=== PATIENT | male | born 2000 | race Caucasian/White ===

== ENCOUNTER 2021-10-11 06:34 | Emergency (ER) | payer SELFPAY ==
[2021-10-11 06:58] VITALS: BP 153/111; PULSE 86; RESP 20; TEMP 36.9; O2SAT 97; BMI 33.5
--- NOTE | 2021-10-11 07:26 | ED.GENADULT ---
HPI - General Adult General Time Seen by Provider: 07:25 Date Seen: 10/11/21 Chief complaint: Ear/Nose/Throat Problem Stated complaint: EAR PAIN,LOSS OF HEARING Time Seen by Provider: 10/11/21 07:19 Source: patient Mode of arrival: ambulatory Limitations: no limitations History of Present Illness HPI narrative: Patient is a 21-year-old male who presents bilateral ear pain, drainage, pain discomfort over the last couple of days. He has a slight postnasal drainage as well. No COVID exposure, no COVID type illness, no loss of taste or smell. Patient denies cough denies shortness of breath denies chest pain. Noted is his blood pressure is elevated. He agrees to follow up with the pharmacy to get a couple of readings and then follow up with his regular doctor in [place] within the next couple of days. He denies allergies to medication. He has had no fever Onset (ago): day(s) Quality: stabbing and aching Pain Consistency: constant Relieving factors: none Exacerbating factors: none Associated symptoms: denies other symptoms Treatments prior to arrival: aspirin Related Data Home Medications Medication Instructions Recorded Confirmed aspirin 50 mg PO PRN 10/11/21 10/11/21 lorazepam 1 mg tablet 0.5 mg PO PRN PRN 10/11/21 10/11/21 sertraline 25 mg tablet 25 mg PO QAM 10/11/21 10/11/21 Allergies Allergy/AdvReac Type Severity Reaction Status Date / Time No Known Drug Allergies Allergy Verified 10/11/21 07:05 Review of Systems Narrative: Review of systems is negative for cardiopulmonary GI neurologic skin other mentioned above. [facility] Medical History Anterior dislocation of right shoulder Anxiety Cellulitis Closed head injury Concussion Head trauma Influenza A Otitis media Overdose Palpitations PCP abuse Polysubstance abuse Rib injury Exam Narrative: Exam Narrative: Objective vital signs show the patient be afebrile HEENT shows bilateral otitis externa otitis media HEENT is otherwise unremarkable, throat is clear, pupils aggression light negative icterus Neck is supple Radial pulses regular Blood pressure noted to be elevated [id number] Const: Vital Signs, click to edit/add: Vital Signs - 24 hr 10/11/21 06:58 Temperature 98.4 F Pulse Rate [Right Pulse Oximeter] 86 Respiratory Rate 20 Blood Pressure [Le ft Upper Arm] 153/111 H Pulse Oximetry 97 Course Vital Signs Vital signs: Initial Vital Signs Temperature 98.4 F 10/11/21 06:58 Temperature Source Temporal Artery Scan 10/11/21 06:58 Pulse Rate 86 10/11/21 06:58 Pulse Rhythm 10/11/21 06:58 Pulse Strength 3+ Normal 10/11/21 06:58 Respiratory Rate 20 10/11/21 06:58 Blood Pressure 153/111 H 10/11/21 06:58 Blood Pressure Mean 125 10/11/21 06:58 Blood Pressure Position Sitting 10/11/21 06:58 Pulse Oximetry 97 10/11/21 06:58 Oxygen Delivery Method 10/11/21 06:58 Vital Signs Temperature 98.4 F 10/11/21 06:58 Pulse Rate 86 10/11/21 06:58 Respiratory Rate 20 10/11/21 06:58 Blood Pressure 153/111 H 10/11/21 06:58 Pulse Oximetry 97 10/11/21 06:58 Temperature 98.4 F 10/11/21 06:58 Pulse Rate 86 10/11/21 06:58 Respiratory Rate 20 10/11/21 06:58 Blood Pressure 153/111 H 10/11/21 06:58 Pulse Oximetry 97 10/11/21 06:58 Discharge Plan Discharge Clinical Impression: Otitis externa Qualifiers: Otitis externa type: other infective Chronicity: acute Laterality: bilateral Qualified Code(s): H60.393 - Other infective otitis externa, bilateral Otitis media Qualifiers: Chronicity: acute Patient Disposition: Home, Self-Care Condition: Stable Instructions: How to Use Ear Drops (ED), Ear Infection (ED) Additional Instructions: Will give oral antibiotics as well as antibiotic drops to use. Tylenol Advil to use as well, recheck blood pressure with pharmacy 2-3 times over the next week and then recheck with primary care with blood pressure readings Activity Level: No Restrictions Activity Detail: as tolerated Discharge Diet: Regular Prescriptions: No Action sertraline 25 mg tablet 25 mg PO QAM 0RF Label Comments: TAKE 1 TABLET BY MOUTH EVERY MORNING lorazepam 1 mg tablet 0.5 mg PO PRN PRN (Reason: anxiety) 0RF Label Comments: TAKE 1/2 TO 1 TABLET BY MOUTH TWICE DAILY NEEDED FOR ANXIETY OR SLEEP. MUST LAST 30 DAYS aspirin [Adult Low Dose Aspirin] 50 mg PO PRN 0RF Stand Alone Forms: [employer] Info Instructions
== END 2021-10-11 08:42 | disposition home or self-care (01) ==
LOC: ED 08:05
PROVIDERS: Emergency Provider Family Medicine; PCP Family Medicine
DX: H60.393 Other infective otitis externa, bilateral (principal)
CPT/HCPCS: 99283; 99284; A9270

== ENCOUNTER 2024-02-06 22:19 | Inpatient (IN) | payer MEDICAID, SELFPAY ==
[2024-02-06 23:07] VITALS: BP 162/104; PULSE 117; RESP 24; TEMP 36.6; O2SAT 98; BMI 30.7
[2024-02-07] VITALS (17 sets, daily range): BP systolic 138–181; BP diastolic 82–103; PULSE 87–126; RESP 18–32; TEMP 36.1–37.5; O2SAT 98–100; BMI 34.0
--- NOTE | 2024-02-07 00:01 | ED_ITS ---
HPI - Nausea/Vomiting/Diarrhea General Chief complaint: Nausea/Vomiting Stated complaint: vomiting, stomach pain Time Seen by Provider: 02/06/24 22:31 History of Present Illness HPI Narrative: Patient is a 23-year-old daily marijuana user comes in tonight with refractory vomiting. He has not had any marijuana for last 2 days as he has had significant nausea and vomiting. He has no abdominal pain. No changes bowel or bladder. No fevers no chills no neurologic symptoms. No chest pain no shortness of breath. He has had no blood in his vomitus. He has had no similar symptoms previously. Related Data Home Medications ?Medication ?Instructions ?Recorded ?Confirmed aspirin 50 mg PO PRN 10/11/21 10/11/21 lorazepam 1 mg tablet 0.5 mg PO PRN PRN anxiety 10/11/21 10/11/21 sertraline 25 mg tablet 25 mg PO QAM 10/11/21 10/11/21 Allergies Allergy/AdvReac Type Severity Reaction Status Date / Time No Known Drug Allergies Allergy Verified 02/06/24 23:07 Review of Systems Status of ROS: Reports: 10 or more systems reviewed and unremarkable except as noted in History and below [facility] Medical History Rib injury ?S29.9XXA - Unspecified injury of thorax, initial encounter (ICD-10) Polysubstance abuse ?F19.10 - Other psychoactive substance abuse, uncomplicated (ICD-10) PCP abuse ?F16.10 - Hallucinogen abuse, uncomplicated (ICD-10) Palpitations ?R00.2 - Palpitations (ICD-10) Overdose ?T50.901A - Poisoning by unspecified drugs, medicaments and biological substances, accidental (unintentional), initial encounter (ICD-10) Otitis media ?H66.90 - Otitis media, unspecified, unspecified ear (ICD-10) Influenza A ?J10.1 - Influenza due to other identified influenza virus with other respiratory manifestations (ICD-10) Head trauma ?S09.90XA - Unspecified injury of head, initial encounter (ICD-10) Concussion ?S06.0X9A - Concussion with loss of consciousness of unspecified duration, initial encounter (ICD-10) Closed head injury ?S09.90XA - Unspecified injury of head, initial encounter (ICD-10) Cellulitis ?L03.90 - Cellulitis, unspecified (ICD-10) Anxiety ?F41.9 - Anxiety disorder, unspecified (ICD-10) Anterior dislocation of right shoulder ?S43.014A - Anterior dislocation of right humerus, initial encounter (ICD-10) Social History Smoking Status: Never smoker Do you use any of these nicotine containing products: None Second hand tobacco smoke exposure: No How often do you have a drink containing alcohol: monthly or less How many standard drinks containing alcohol do you have on a typical day: 3 or 4 How often do you have six or more drinks on one occasion: Never AUDIT-C Alcohol total score: 2 Non-prescribed substance use: denies use service: No Exam Narrative: Exam Narrative: EXAM GENERAL: Patient appears Acutely uncomfortable and vomiting. EYES: No scleral icterus. LYMPH: No supraclavicular or cervical lymphadenopathy. SKIN: Visible skin seen during exam normal or with benign process only. EXT: No dependent lower extremity pedal edema. HEART: Regular rate and rhythm with no murmurs, rubs, or gallops. LUNGS: Clear to auscultation bilaterally with no crackles or wheezes. ABD: Soft, non tender, non distended. PSYCH: Good eye contact, speech is not pressured. Const: Vital Signs, click to edit/add: Vital Signs - 24 hr 02/06/24 23:07 Temperature 97.9 F Pulse Rate [Pulse Oximeter] 117 H Respiratory Rate 24 Blood Pressure [Ri ght Upper Arm] 162/104 H Pulse Oximetry 98 Oxygen Delivery Me thod Room Air Course Course ED Course: Patient seen examined. Comprehensive metabolic panel CBC lactate ordered. Normal saline bolus and IV Zofran given. Reevaluation(s) Time of Reevaluation #1: 01:14 Reevaluation #1: Patient has evidence of metabolic acidosis and hyperglycemia consistent with diabetic ketoacidosis. Patient's IV hydration will be continued intravenous insulin given and patient started on insulin drip. Patient will be admitted to hospitalist service. Vital Signs Vital signs: Initial Vital Signs Temperature 97.9 F 02/06/24 23:07 Temperature Source Temporal Artery Scan 02/06/24 23:07 Pulse Rate 117 H 02/06/24 23:07 Respiratory Rate 24 10/24/24 23:07 Blood Pressure 162/104 H 02/06/24 23:07 Blood Pressure Mean 123 H 02/06/24 23:07 Blood Pressure Position Sitting 02/06/24 23:07 Pulse Oximetry 98 02/06/24 23:07 Oxygen Delivery Method Room Air 02/06/24 23:07 Vital Signs Temperature 97.9 F 02/06/24 23:07 Pulse Rate 117 H 02/06/24 23:07 Respiratory Rate 24 02/06/24 23:07 Blood Pressure 162/104 H 02/06/24 23:07 Pulse Oximetry 98 02/06/24 23:07 Oxygen Delivery Method Room Air 02/06/24 23:07 Temperature 97.9 F 02/06/24 23:07 Pulse Rate 117 H 02/06/24 23:07 Respiratory Rate 24 02/06/24 23:07 Blood Pressure 162/104 H 02/06/24 23:07 Pulse Oximetry 98 02/06/24 23:07 Oxygen Delivery Method Room Air 02/06/24 23:07 Medications Administered Medications: Generic Name Dose Route Start Last Admin Trade Name Freq PRN Reason Stop Dose Admin Ondansetron HCl 4 mg 02/06/24 23:59 02/07/24 00:12 Ondansetron 2 Mg/Ml Inj IVP 4 mg ONCE PRN Administration Discontinued Medications Generic Name Dose Route Start Last Admin Trade Name Freq PRN Reason Stop Dose Admin Sodium Chloride 1,000 mls @ 1,000 mls/hr 02/07/24 00:00 02/07/24 01:05 0.9 % Sodium Chloride 1000 Ml IV 02/07/24 00:59 Infused .Q1H BARB Infusion MDM - Nausea/Vomiting/Diarrhea MDM Narrative Medical decision making narrative: patient is a 23-year-old gentleman who presents with nausea and vomiting not feeling well for 2 days. He has a strong family history of type 1 diabetes and has evidence of diabetic ketoacidoss tonight with a pH of 6.9 and an anion gap of 25 and a blood sugar greater than 350. This time we continue his hydration which we had started initially. He had given him IV Zofran as well I did note fairly stable electrolytes and did start him on an insulin drip and patient will be admitted to the hospitalist service. Lab Data Labs: Lab Results 10/25/24 Range/Units 00:30 WBC 13.41 H (4.50-11.00) K/uL RBC 6.19 H (4.30-5.90) m/uL Hgb 18.3 H (13.5-17.5) gm/dL Hct 54.0 H (37.0-53.0) % MCV 87 (80-100) fL MCH 30 (26-34) pg MCHC 34 (32-36) gm/dL RDW Coeff of Syd 14.5 (11.5-15.5) % Plt Count 237 (140-440) K/uL Neut % (Auto) 84.1 H (42.0-72.0) % Lymph % (Auto) 9.7 L (20-44) % Charlton % (Auto) 3.4 (0.0-11.0) % Eos % (Auto) 0.1 (0.0-7.0) % Baso % (Auto) 0.2 (0.0-3.0) % Neut # (Auto) 11.30 H (1.7-7.0) K/uL Lymph # (Auto) 1.30 (0.90-2.90) K/uL Charlton # (Auto) 0.50 (0.00-0.90) K/UL Eos # (Auto) 0.00 (0.00-0.50) K/uL Baso # (Auto) 0.00 (0.00-0.30) K/uL Abs Immat Gran (auto) 0.30 (0.00-0.30) K/uL Imm/Tot Granulo (auto) 2.5 % VBG pH 6.929 L* (7.32-7.43) VBG pCO2 33 L (40-50) mmHG VBG pO2 < 30.1 (25-47) mmHG VBG HCO3 7 L (21-28) mmol/L Sodium 137 (135-149) mmol/L Potassium 4.7 (3.6-5.1) mmol/L Chloride 106 (96-114) mmol/L Carbon Dioxide 6 L* (20-32) mmol/L Anion Gap 25 H (7-15) mEq/L BUN 6 (5-24) mg/dL Creatinine 0.6 (0.5-1.5) mg/dL Estimated Creat Clear 202.19 Estimated GFR 138 ml/min Glucose 361 H* (60-115) mg/dL Lactate 1.8 (0.5-1.9) mmol/L Calcium 8.9 (8.4-10.6) mg/dL Total Bilirubin 0.9 (0.1-1.5) mg/dL AST 18 (12-35) U/L ALT 29 (4-50) U/L Alkaline Phosphatase 171 H (40-150) U/L Total Protein 8.8 H (6.0-8.3) g/dL Albumin 5.5 H (3.3-5.0) g/dL Discharge Plan Discharge Clinical Impression: DKA, type 1 Patient Disposition: Admitted As Observation Condition: Stable Activity Level: Other Discharge Diet: Other Prescriptions: No Action sertraline 25 mg tablet 25 mg PO QAM Patient Comments: TAKE 1 TABLET BY MOUTH EVERY MORNING lorazepam 1 mg tablet 0.5 mg PO PRN PRN (Reason: anxiety) Patient Comments: TAKE 1/2 TO 1 TABLET BY MOUTH TWICE DAILY NEEDED FOR ANXIETY OR SLEEP. MUST LAST 30 DAYS aspirin [Adult Low Dose Aspirin] 50 mg PO PRN Follow Up/Referrals: Provider,Not a Local [Primary Care Provider] -
[2024-02-07] MEDS: 0.9 % SODIUM CHLORIDE 1000 ml 1,000 ML IV ×2 (00:12→01:22)
[2024-02-07] MEDS: ONDANSETRON 2 MG/ML inj 4 MG IVP ×2 (00:12→12:14)
[2024-02-07 00:45] LABS: Basophils Percent Auto 0.2 % (0.0-3.0); Eosinophils Percent Auto 0.1 % (0.0-7.0); Hemoglobin* 18.3 gm/dL (13.5-17.5); Immature Granulocytes Pct Auto 2.5 %; Lymphocytes Percent Auto 9.7 % (20-44); Mean Corpuscular HGB Conc 34 gm/dL (32-36); Mean Corpuscular Hemoglobin 30 pg (26-34); Mean Corpuscular Volume 87 fL (80-100); Monocytes Percent Auto 3.4 % (0.0-11.0); Neutrophils Percent Auto 84.1 % (42.0-72.0); Platelet Count* 237 K/uL (140-440); RDW Coefficient of Variation % 14.5 % (11.5-15.5); Red Blood Count 6.19 m/uL (4.30-5.90); White Blood Count* 13.41 K/uL (4.50-11.00)
[2024-02-07 00:52] LABS: Albumin* 5.5 g/dL (3.3-5.0); Chloride* 106 mmol/L (96-114)
[2024-02-07 00:53] LABS: Potassium* 4.7 mmol/L (3.6-5.1); Sodium* 137 mmol/L (135-149)
[2024-02-07 00:54] LABS: Slide Review Reflex No
[2024-02-07 00:55] LABS: Anion Gap 25 mEq/L (7-15); Aspartate Amino Transferase* 18 U/L (12-35); Bilirubin Total* 0.9 mg/dL (0.1-1.5); Creatinine* 0.6 mg/dL (0.5-1.5); Est. Creatinine Clearance* 202.19; Estimated Glomerular Filt Rate 138 ml/min; Total Protein* 8.8 g/dL (6.0-8.3)
[2024-02-07 00:56] LABS: Alanine Aminotransferase* 29 U/L (4-50); Alkaline Phosphatase* 171 U/L (40-150); Blood Urea Nitrogen* 6 mg/dL (5-24); Calcium* 8.9 mg/dL (8.4-10.6)
[2024-02-07 00:58] LABS: Carbon Dioxide* 6 mmol/L (20-32); Glucose* 361 mg/dL (60-115)
[2024-02-07 01:11] LABS: Lactate* 1.8 mmol/L (0.5-1.9)
[2024-02-07 01:12] LABS: HCO3 VBG 7 mmol/L (21-28); PCO2 VBG 33 mmHG (40-50); PO2 VBG < 30.1 mmHG (25-47); pH VBG 6.929 (7.32-7.43)
[2024-02-07] MEDS: INSULIN REGULAR, HUMAN 100 UNIT/ML VIAL 8 UNIT IVP (01:17)
[2024-02-07] MEDS: INSULIN INF 100 UNIT/100 ML 100 UNIT/100 ML BAG IVPB ×3 (01:19→23:07)
--- NOTE | 2024-02-07 02:34 | W.PM.TELEH&P ---
Telehealth- H&P: HPI History of Present Illness Date Seen: 02/07/24 Chief complaint: vomiting, stomach pain Narrative: Vishnu Jesus is seen as an Interactive Telehealth visit. Vishnu Jesus is a 23-year-old male with a past medical history significant for obesity, anxiety depression who presented to hospital with complaints of weakness. Approximately 2 to 3 weeks ago he was noticing that he was having increasing thirst. He is getting up multiple times in the night to go to the bathroom. He was noticing that he was drinking excessive amounts of water. Over the past 2 to 3 days he has noted that his urination has decreased despite being thirsty. He has noted increasing weakness and fatigue. When he presented to the emergency room, he was noted to be severely tachypneic. His labs showed pH of 6.929, bicarb level of less than 5, and elevated glucose. Fortunately beta hydroxybutyrate lab values will not able to be obtained. He was diagnosed with diabetic ketoacidosis. And started her on an insulin infusion and bolused 2 L of fluid in the ER. His labs showed significant hemoconcentration with a hemoglobin of 18.3, hematocrit of 54. When I saw the patient on the floor, he was noted to be tachypneic and in discomfort. He did however state that he was feeling better after the fluid. He was started on an insulin infusion DKA protocol. Physical exam did not yield any gross abnormality Review of Systems Status of ROS: Reports: 10 or more systems reviewed and unremarkable except as noted in History and below Const: Reports: change in weight and fatigue; Denies: fever or night sweats Cardio: Reports: palpitations and shortness of breath with exertion; Denies: chest pain Resp: Reports: shortness of breath GI: Reports: nausea and vomiting; Denies: abdominal pain : Reports: urinary frequency Endo: Reports: excessive urination and fatigue [facility] Medical History Rib injury ?S29.9XXA - Unspecified injury of thorax, initial encounter (ICD-10) Polysubstance abuse ?F19.10 - Other psychoactive substance abuse, uncomplicated (ICD-10) PCP abuse ?F16.10 - Hallucinogen abuse, uncomplicated (ICD-10) Palpitations ?R00.2 - Palpitations (ICD-10) Overdose ?T50.901A - Poisoning by unspecified drugs, medicaments and biological substances, accidental (unintentional), initial encounter (ICD-10) Otitis media ?H66.90 - Otitis media, unspecified, unspecified ear (ICD-10) Influenza A ?J10.1 - Influenza due to other identified influenza virus with other respiratory manifestations (ICD-10) Head trauma ?S09.90XA - Unspecified injury of head, initial encounter (ICD-10) Concussion ?S06.0X9A - Concussion with loss of consciousness of unspecified duration, initial encounter (ICD-10) Closed head injury ?S09.90XA - Unspecified injury of head, initial encounter (ICD-10) Cellulitis ?L03.90 - Cellulitis, unspecified (ICD-10) Anxiety ?F41.9 - Anxiety disorder, unspecified (ICD-10) Anterior dislocation of right shoulder ?S43.014A - Anterior dislocation of right humerus, initial encounter (ICD-10) Social History What is your current living situation?: I presently have a place to live Problems where you live: no known problems Problems where you live details: NO KNOWN PROBLEMS In the past 12 months, utilities in danger of being shut off: no In past 12 months, lack of transportation kept you from medical appts, meetings, work, or getting things needed for daily living: no In the past 12 mos, have been you worried that your food would run out before you had money to buy more?: never true In the past 12 mos, the food you bought just didn't last and you didn't have money to buy more?: never true Highest level of school completed/degree received: high school graduate Smoking Status: Smoker, status unknown Do you use any of these nicotine containing products: None Second hand tobacco smoke exposure: No How often do you have a drink containing alcohol: monthly or less Alcohol type: beer How many standard drinks containing alcohol do you have on a typical day: 3 or 4 How often do you have six or more drinks on one occasion: Never AUDIT-C Alcohol total score: 2 Non-prescribed substance use: marijuana (any form) How often does anyone, including family, friends and others, physically hurt you: never How often does anyone, including family, friends and others, insult or talk down to you: never How often does anyone, including family, friends and others, threaten you with harm: never How often does anyone, including family, friends and others, scream or curse at you: never service: No Meds Home Medications and Allergies Home Medications ?Medication ?Instructions ?Recorded ?Confirmed ?Type aspirin 50 mg PO PRN 10/11/21 10/11/21 History lorazepam 1 mg tablet 0.5 mg PO PRN PRN anxiety 10/11/21 10/11/21 History sertraline 25 mg tablet 25 mg PO QAM 10/11/21 10/11/21 History Allergies Allergy/AdvReac Type Severity Reaction Status Date / Time No Known Drug Allergies Allergy Verified 02/06/24 23:07 Exam Narrative Exam Narrative: Physical Exam GENERAL: ?vital signs reviewed, well developed. Patient appeared to be in distress with deep, rapid breathing. But without evidence of hypoxia HEENT: pupils are equal round and reactive to light, extraocular movements are grossly within normal limits and oral mucosa is moist. NECK: Supple without lymphadenopathy or thyromegaly according to nursing staff examination observation HEART: tachycardia without any rubs, murmurs, or gallops. LUNGS: Clear to auscultation bilaterally with good air movement throughout ABDOMEN: Observation from nurse assisted exam, abdomen appears soft, nontender, and nondistended with Positive bowel sounds noted. EXTREMITIES: Strength and sensation is observed to be grossly within normal limits in the upper and lower extremities.? No focal strength deficit is observed. SKIN:? Observed warm and dry with color normal Const Vital Signs, click to edit/add: Vital Signs - 24 hr 02/06/24 23:07 Temperature 97.9 F Pulse Rate [Pulse Oximeter] 117 H Respiratory Rate 24 Blood Pressure [Right Upper Arm] 162/104 H Pulse Oximetry 98 Oxygen Delivery Method Room Air Hospitalist - H&P: Result Labs Labs: Short CBC 02/07/24 Range/Units 00:30 WBC 13.41 H (4.50-11.00) K/uL Hgb 18.3 H (13.5-17.5) gm/dL Hct 54.0 H (37.0-53.0) % Plt Count 237 (140-440) K/uL BMP 02/07/24 00:30 Sodium 137 Potassium 4.7 Chloride 106 Carbon Dioxide 6 L* BUN 6 Creatinine 0.6 Glucose 361 H* Calcium 8.9 Liver Function 02/07/24 Range/Units 00:30 Total Bilirubin 0.9 (0.1-1.5) mg/dL AST 18 (12-35) U/L ALT 29 (4-50) U/L Alkaline Phosphatase 171 H (40-150) U/L Albumin 5.5 H (3.3-5.0) g/dL Assessment and Plan Assessment and plan (1) DKA, type 1: Status: Acute Plan This is a 23-year-old male with a new diagnosis of diabetic ketoacidosis. This is based on a pH level less than 7, evidence of acidosis on renal exam with a bicarb level less than 5 anion gap acidosis and with hyperglycemia. His clinical exam also was consistent with polyuria polydipsia. We started the patient on DKA protocol which included starting the insulin infusion and normal saline at 200 mL/h. Once his blood sugars were less than 200, the protocol switched fluids to D5 normal saline at 150 mL/h. There after, the insulin infusion would continue until his anion gap closed. To assess his anion gap, we have renal panels every 4 hours. This diagnosis of diabetes appears to be a first-time diagnosis. I will request diabetic education to be involved. This patient has noted to have elevated blood pressure. It is possible that this is likely due to the distress he is in. However if he remains to have elevated blood pressure, I would consider starting an ZULMA inhibitor and checking his urine for microalbuminuria while in the hospital. The patient did experience intractable nausea vomiting. I will provide pantoprazole IV and as needed Zofran. Telehealth Visit Today's History and Physical is provided via interactive telehealth by Dr. Rob Molina MD. Patient is located at [facility]. Provider is located at [facility]. Nursing staff assisted with the patient's examination. The visit being done today meets criteria for a telehealth visit and the patient or patient's parent and/or gaurdian is aware the visit is a telehealth visit. Camera Start Time 2:30 AM Camera End Time 3 AM Telehealth: Statement Statement Telehealth Visit: Today's History and Physical is provided via interactive telehealth by Rob Molina MD.? Patient is located at [facility].? Provider is located at [facility].? Nursing staff assisted with the patient's exam. The visit being done today meets criteria for a telehealth visit and the patient or patient?s parent/guardian is aware the visit is a telehealth visit.
[2024-02-07 02:45] LABS: HCO3 VBG 5 mmol/L (21-28); Lactate* 1.5 mmol/L (0.5-1.9); PCO2 VBG 24 mmHG (40-50); PO2 VBG < 30.1 mmHG (25-47)
[2024-02-07 02:47] LABS: pH VBG 6.959 (7.32-7.43)
[2024-02-07 03:02] LABS: Chloride* 107 mmol/L (96-114); Sodium* 137 mmol/L (135-149)
[2024-02-07 03:03] LABS: Potassium* 4.3 mmol/L (3.6-5.1)
[2024-02-07 03:05] LABS: Creatinine* 0.5 mg/dL (0.5-1.5); Est. Creatinine Clearance* 242.63; Estimated Glomerular Filt Rate 146 ml/min; Phosphorus* 3.3 mg/dL (2.5-4.5)
[2024-02-07 03:06] LABS: Blood Urea Nitrogen* 6 mg/dL (5-24); Calcium* 8.7 mg/dL (8.4-10.6); Glucose* 283 mg/dL (60-115)
[2024-02-07 03:13] LABS: Anion Gap 25 mEq/L (7-15); Carbon Dioxide* < 5 mmol/L (20-32)
[2024-02-07] MEDS: PANTOPRAZOLE SODIUM 40 MG INJ IVP (03:21)
[2024-02-07 03:37] LABS: TSH With Reflex to FT4* 0.449 uIU/mL (0.270-4.200)
[2024-02-07 03:47] LABS: HIV 1/2/P24 Combo Screen* Negative (Negative)
[2024-02-07] MEDS: 5 % DEXTROSE/0.9% SOD CHLORIDE 1,000 ML 150 ML IV (04:29)
[2024-02-07 06:39] LABS: HCO3 VBG 4 mmol/L (21-28); Lactate* 0.9 mmol/L (0.5-1.9); PO2 VBG 47.6 mmHG (25-47)
[2024-02-07 07:12] LABS: Appearance Urine Clear (Clear); Bilirubin Urine 1+ (Negative); Blood Urine 2+ (Negative); Color Urine Yellow (Yellow); Glucose Urine Trace (Negative); Ketones Urine 4+ (Negative); Leukocyte Esterase Urine Negative (Negative); Nitrite Urine Negative (Negative); Protein Urine 2+ (Negative); Specific Gravity Urine >= 1.030 (1.000-1.030); Urobilinogen Urine 0.2 (0.2-1.0)
[2024-02-07 07:19] LABS: Basophils Percent Auto 0.1 % (0.0-3.0); Eosinophils Percent Auto 0.1 % (0.0-7.0); Hematocrit 48.2 % (37.0-53.0); Hemoglobin* 16.7 gm/dL (13.5-17.5); Lymphocytes Percent Auto 15.7 % (20-44); Mean Corpuscular HGB Conc 35 gm/dL (32-36); Mean Corpuscular Hemoglobin 30 pg (26-34); Mean Corpuscular Volume 86 fL (80-100); Neutrophils Percent Auto 74.1 % (42.0-72.0); Platelet Count* 216 K/uL (140-440); RDW Coefficient of Variation % 14.3 % (11.5-15.5); Red Blood Count 5.61 m/uL (4.30-5.90); White Blood Count* 13.78 K/uL (4.50-11.00)
[2024-02-07 07:20] LABS: Chloride* 108 mmol/L (96-114); PCO2 VBG 16 mmHG (40-50); Potassium* 3.7 mmol/L (3.6-5.1); Sodium* 135 mmol/L (135-149); pH VBG 7.024 (7.32-7.43)
[2024-02-07 07:21] LABS: Slide Review Reflex No
[2024-02-07 07:23] LABS: Amorphous Sediment Urine Moderate; Squamous Epithelial Cell Urine Many (None-Few); WBC Urine 0-2 (0-5)
[2024-02-07 07:23] LABS: Creatinine* 0.6 mg/dL (0.5-1.5); Est. Creatinine Clearance* 202.19; Estimated Glomerular Filt Rate 138 ml/min
[2024-02-07 07:24] LABS: Blood Urea Nitrogen* 5 mg/dL (5-24); Calcium* 8.8 mg/dL (8.4-10.6); Glucose* 227 mg/dL (60-115)
[2024-02-07 07:25] LABS: Anion Gap 22 mEq/L (7-15)
[2024-02-07 07:27] LABS: Carbon Dioxide* < 5 mmol/L (20-32)
--- NOTE | 2024-02-07 07:31 | PC.NURSE ---
END OF SHIFT NOTE: PT NEW DIAGNOSIS OF DM TYPE 1. A&O. TACHYPNEIC BREATHING. DENIES N/V/D. BP'S HTN 170/100. TELE READS SINUS TACH. PT BG 195, 232, 227 INSULIN DRIP ADJUSTED PER PROTOCOL. PT STATES INCREASED THIRST AND URINATION. IV TO RIGHT AC PATENT. LSCTA. CALL LIGHT WITHIN PT REACH.
--- NOTE | 2024-02-07 07:32 | P.IMPN_ITS ---
Progress Note: A&P Assessment and plan (1) DKA, type 1: Problem details: - new diagnosis on presentation 02/06/24 - acidotic with pH 6.92, bicarb <5, AG 25 - improving on insulin gtt, D5NS +KCl, bicarbonate - continue insulin gtt until able to tolerate po intake + closed AG Status: Acute Plan - continue CCU status for now - per above - father updated by phone, questions answered Subjective Date Seen: 02/07/24 Interval history: Vishnu was admitted to the CCU last night for a new diagnosis of DM, in DKA. Presenting blood sugar 361; pH 6.92 on VBG, bicarb of <5, AG of 25. Admitted on insulin gtt. Overnight, having improvement in pH, AG, bicarb. This morning, he is feeling tired and nauseated, no other concerns. + family history of DM2. Exam Narrative: Exam Narrative: GEN: Sleeping in bed, arouses to voice, appears ill but nontoxic CV: RRR (HR 80-90s during my exam) R: Intermittent tachypnea, LCTA bilaterally Ab: soft, nontender, no HSM Ext: wwp, no concerning edema Skin: No concerning skin lesions or rashes Neuro: Nonfocal Psych: Appropriate Const: Vital Signs, click to edit/add: Vital Signs - 24 hr 02/06/24 23:07 02/07/24 01:55 02/07/24 01:55 Temperature 97.9 F 97.0 F L Pulse Rate Pulse Rate [Pulse Oximeter] 117 H 126 H Respiratory Rate 24 32 H 32 H Blood Pressure [Le ft Arm] 181/97 H Blood Pressure [Ri ght Upper Arm] 162/104 H Pulse Oximetry 98 98 100 Oxygen Delivery Me thod Room Air Room Air Room Air 02/07/24 04:00 02/07/24 04:20 02/07/24 06:00 Temperature 98.3 F 98.3 F Pulse Rate 104 H Pulse Rate [Pulse Oximeter] 113 H 113 H Respiratory Rate 28 H 28 H Blood Pressure [Le ft Arm] 175/103 H 169/94 H Blood Pressure [Ri ght Upper Arm] Pulse Oximetry 100 100 Oxygen Delivery Me thod Room Air Room Air Labs Labs: Laboratory Results - last 24 hr 02/07/24 02/07/24 02/07/24 00:30 02:35 06:22 WBC 13.41 H 13.78 H RBC 6.19 H 5.61 Hgb 18.3 H 16.7 Hct 54.0 H 48.2 MCV 87 86 MCH 30 30 MCHC 34 35 RDW Coeff of Syd 14.5 14.3 Plt Count 237 216 Neut % (Auto) 84.1 H 74.1 H Lymph % (Auto) 9.7 L 15.7 L [place] % (Auto) 3.4 8.0 Eos % (Auto) 0.1 0.1 Baso % (Auto) 0.2 0.1 Neut # (Auto) 11.30 H 10.20 H Lymph # (Auto) 1.30 2.20 [place] # (Auto) 0.50 1.10 H Eos # (Auto) 0.00 0.00 Baso # (Auto) 0.00 0.00 Abs Immat Gran (auto) 0.30 0.30 Imm/Tot Granulo (auto) 2.5 2.0 VBG pH 6.929 L* 6.959 L* 7.024 L* VBG pCO2 33 L 24 L 16 L* VBG pO2 < 30.1 < 30.1 47.6 H VBG HCO3 7 L 5 L 4 L Sodium 137 137 135 Potassium 4.7 4.3 3.7 Chloride 106 107 108 Carbon Dioxide 6 L* < 5 L* < 5 L* Anion Gap 25 H 25 H 22 H BUN 6 6 5 Creatinine 0.6 0.5 0.6 Estimated Creat Clear 202.19 242.63 202.19 Estimated GFR 138 146 138 Glucose 361 H* 283 H 227 H Lactate 1.8 1.5 0.9 Calcium 8.9 8.7 8.8 Phosphorus 3.3 Magnesium 2.0 Total Bilirubin 0.9 AST 18 ALT 29 Alkaline Phosphatase 171 H Total Protein 8.8 H Albumin 5.5 H TSH 0.449 Urine Color Urine Appearance Urine pH Ur Specific [place] Urine Protein Urine Glucose (UA) Urine Ketones Urine Blood Urine Nitrite Urine Bilirubin Urine Urobilinogen Ur Leukocyte Esterase Urine RBC Urine WBC Ur Squamous Epith Cells Amorphous Sediment Urine Bacteria HIV 1&2 Ab/P24 Ag 4thGn Negative 02/07/24 06:30 WBC RBC Hgb Hct MCV MCH MCHC RDW Coeff of Syd Plt Count Neut % (Auto) Lymph % (Auto) [place] % (Auto) Eos % (Auto) Baso % (Auto) Neut # (Auto) Lymph # (Auto) [place] # (Auto) Eos # (Auto) Baso # (Auto) Abs Immat Gran (auto) Imm/Tot Granulo (auto) VBG pH VBG pCO2 VBG pO2 VBG HCO3 Sodium Potassium Chloride Carbon Dioxide Anion Gap BUN Creatinine Estimated Creat Clear Estimated GFR Glucose Lactate Calcium Phosphorus Magnesium Total Bilirubin AST ALT Alkaline Phosphatase Total Protein Albumin TSH Urine Color Yellow Urine Appearance Clear Urine pH 5.0 Ur Specific [place] >= 1.030 Urine Protein 2+ A Urine Glucose (UA) Trace A Urine Ketones 4+ A Urine Blood 2+ A Urine Nitrite Negative Urine Bilirubin 1+ A Urine Urobilinogen 0.2 Ur Leukocyte Esterase Negative Urine RBC 5-10 A Urine WBC 0-2 Ur Squamous Epith Cells Many A Amorphous Sediment Moderate A Urine Bacteria None HIV 1&2 Ab/P24 Ag 4thGn
[2024-02-07] MEDS: 5 % DEX/0.9 SOD CHL+KCL 20 mEq 1,000 ML 125 ML IV (08:12)
[2024-02-07] MEDS: SODIUM BICARBONATE 50 MEQ/50ML SYRINGE IVP ×2 (09:05→11:42)
[2024-02-07 10:25] LABS: HCO3 VBG 7 mmol/L (21-28); PO2 VBG 64.2 mmHG (25-47)
[2024-02-07 10:30] LABS: PCO2 VBG 17 mmHG (40-50); pH VBG 7.202 (7.32-7.43)
[2024-02-07] MEDS: INSULIN INF 100 UNIT/100 ML 100 UNIT/100 ML BAG 13.5 UNIT IVPB (10:36)
[2024-02-07 10:43] LABS: Chloride* 111 mmol/L (96-114); Potassium* 3.2 mmol/L (3.6-5.1); Sodium* 135 mmol/L (135-149)
[2024-02-07 10:46] LABS: Anion Gap 17 mEq/L (7-15); Creatinine* 0.5 mg/dL (0.5-1.5); Est. Creatinine Clearance* 242.63; Estimated Glomerular Filt Rate 146 ml/min
[2024-02-07 10:47] LABS: Blood Urea Nitrogen* 4 mg/dL (5-24); Glucose* 195 mg/dL (60-115)
[2024-02-07 10:51] LABS: Carbon Dioxide* 7 mmol/L (20-32)
[2024-02-07] MEDS: POTASSIUM CHLORIDE 10 MEQ/100 ML PIGGYBACK 100 MEQ IVPB ×3 (11:42→14:13)
[2024-02-07] MEDS: POTASSIUM BICARB 25 MEQ EFFERVESCENT TAB 50 MEQ PO (11:42)
[2024-02-07 14:07] LABS: HCO3 VBG 10 mmol/L (21-28); PCO2 VBG 21 mmHG (40-50); pH VBG 7.281 (7.32-7.43)
--- NOTE | 2024-02-07 14:23 | NUTR.NU ---
RDN with verbal MD consult for diet education related to new diagnosis of diabetes mellitus, type 1. Patient admitted in A, suspected to have new diagnosis of type 1 diabetes mellitus. Past medical history Polysubstance abuse, Cellulitis, and Anxiety. Current weight 243 lb 11.2 oz; height 5ft 11in; BMI 34.0 kg/m2. No weight history to assess. No oral intakes recorded since admit. RDN attempted to visit x2, however spoke to nursing whom reports patient is very sick and not feeling well today. Not an appropriate time to visit with patient. RDN informed nursing that diet educational materials were left by patient's physical chart in case he discharges home over the weekend. RDN will attempt to visit with patient if he is still admitted at next work day. RDN's contact information was provided as well.
[2024-02-07 14:47] LABS: Chloride* 112 mmol/L (96-114); Sodium* 135 mmol/L (135-149)
[2024-02-07 14:48] LABS: Potassium* 3.1 mmol/L (3.6-5.1)
[2024-02-07 14:50] LABS: Creatinine* 0.4 mg/dL (0.5-1.5); Est. Creatinine Clearance* 303.29; Estimated Glomerular Filt Rate 156 ml/min
[2024-02-07 14:51] LABS: Anion Gap 15 mEq/L (7-15); Blood Urea Nitrogen* 4 mg/dL (5-24); Calcium* 9.2 mg/dL (8.4-10.6); Glucose* 191 mg/dL (60-115)
[2024-02-07 15:01] LABS: Carbon Dioxide* 8 mmol/L (20-32)
[2024-02-07 15:13] LABS: Hemoglobin A1C* 12.5 % (0-5.6)
[2024-02-07] MEDS: POTASSIUM CHLORIDE 10 MEQ, LIDOCAINE 1 % 1 ML in 0.9 % SODIUM CHLORIDE 100 ml 100 ML 106 MEQ IVPB ×5 (15:31→20:07)
[2024-02-07] MEDS: 5 % DEX/0.9 SOD CHL+KCL 20 mEq 1,000 ML 200 ML IV (15:31)
[2024-02-07 15:33] LABS: Magnesium* 1.9 mg/dL (1.5-2.6)
[2024-02-07] MEDS: INSULIN INF 100 UNIT/100 ML 100 UNIT/100 ML BAG 15 UNIT IVPB (16:21)
[2024-02-07 18:13] LABS: HCO3 VBG 15 mmol/L (21-28); PCO2 VBG 34 mmHG (40-50); PO2 VBG < 30.1 mmHG (25-47); pH VBG 7.249 (7.32-7.43)
[2024-02-07 18:29] LABS: Chloride* 108 mmol/L (96-114); Potassium* 3.4 mmol/L (3.6-5.1); Sodium* 134 mmol/L (135-149)
[2024-02-07 18:32] LABS: Anion Gap 13 mEq/L (7-15); Blood Urea Nitrogen* 4 mg/dL (5-24); Carbon Dioxide* 13 mmol/L (20-32); Creatinine* 0.4 mg/dL (0.5-1.5); Est. Creatinine Clearance* 303.29; Estimated Glomerular Filt Rate 156 ml/min; Glucose* 224 mg/dL (60-115)
[2024-02-07 18:33] LABS: Calcium* 8.8 mg/dL (8.4-10.6); Magnesium* 1.8 mg/dL (1.5-2.6)
--- NOTE | 2024-02-07 19:29 | PC.NURSE ---
PATIENT LETHARGIC THIS MORNING AND AFTERNOON. ATTEMPTED TO DRINK ORAL POTASSIUM THIS AM AND HAD LARGE EMESIS. MD UPDATED AND ORDER CHANGED TO IV. PATIENT MORE ALERT THIS EVENING AND ABLE TO TOLERATE JELLO AND MASHED POTATOES WITH NO N/V. HOURLY BLOOD GLUCOSE LEVELS MONITORED.
[2024-02-07] MEDS: 5 % DEX/0.9 SOD CHL+KCL 20 mEq 1,000 ML 100 ML IV (20:11)
[2024-02-07] MEDS: INSULIN INF 100 UNIT/100 ML 100 UNIT/100 ML BAG 17 UNIT IVPB ×2 (20:52→21:07)
[2024-02-07] MEDS: ENOXAPARIN 40 MG/0.4 ML INJ SUBCUT (21:06)
[2024-02-07] MEDS: INSULIN INF 100 UNIT/100 ML 100 UNIT/100 ML BAG 10 UNIT IVPB (22:29)
[2024-02-07 23:14] LABS: HCO3 VBG 15 mmol/L (21-28); PCO2 VBG 30 mmHG (40-50); PO2 VBG 38.3 mmHG (25-47); pH VBG 7.302 (7.32-7.43)
[2024-02-07 23:36] LABS: Chloride* 112 mmol/L (96-114); Potassium* 3.2 mmol/L (3.6-5.1); Sodium* 136 mmol/L (135-149)
[2024-02-07 23:38] LABS: Creatinine* 0.3 mg/dL (0.5-1.5); Estimated Glomerular Filt Rate 170 ml/min
[2024-02-07 23:39] LABS: Anion Gap 11 mEq/L (7-15); Blood Urea Nitrogen* 3 mg/dL (5-24); Calcium* 9.2 mg/dL (8.4-10.6); Carbon Dioxide* 13 mmol/L (20-32); Glucose* 110 mg/dL (60-115)
[2024-02-08] VITALS (11 sets, daily range): BP systolic 131–147; BP diastolic 79–103; PULSE 74–103; RESP 18–22; TEMP 36.3–37; O2SAT 98–100
[2024-02-08] MEDS: POTASSIUM BICARB 25 MEQ EFFERVESCENT TAB 50 MEQ PO (00:09)
[2024-02-08] MEDS: INSULIN INF 100 UNIT/100 ML 100 UNIT/100 ML BAG IVPB ×2 (01:15→01:16)
[2024-02-08] MEDS: INSULIN INF 100 UNIT/100 ML 100 UNIT/100 ML BAG 8 UNIT IVPB (02:06)
[2024-02-08] MEDS: PANTOPRAZOLE SODIUM 40 MG INJ IVP (02:06)
--- NOTE | 2024-02-08 06:56 | PC.NURSE ---
Alert and oriented x 4.? Denies any pain or shortness of breath.? Denies nausea or vomiting, bowel sounds active x 4 quadrants.? Insulin drip continued throughout the shift and titrated per protocol from [id number], drip titrated via verbal orders from Dr. Hyatt from [id number].? At 0110 patient requested sandwich, patient ate 100% of turkey sandwich on wheat bread and 4 oz apple juice.? Did attempt teaching on nutrition, patient not receptive at this time, appears fatigued at time of attempt to discuss food choices.? Tolerated food and fluids without reports of N & V.? Voiding large amounts of dark, bhupinder colored urine.? Voiding 600-1000cc per void every 2-3 hours.? Denies excessive thirst but has had 2700cc of fluid intake since 1899.? Ambulates independently in room, requires assistance with unplugging IV pole.
[2024-02-08 07:36] LABS: HCO3 VBG 18 mmol/L (21-28); PCO2 VBG 33 mmHG (40-50); PO2 VBG 78.2 mmHG (25-47); pH VBG 7.357 (7.32-7.43)
[2024-02-08 07:43] LABS: Basophils Absolute Auto 0.01 K/uL (0.00-0.30); Basophils Percent Auto 0.2 % (0.0-3.0); Eosinophils Absolute Auto 0.04 K/uL (0.00-0.50); Eosinophils Percent Auto 0.9 % (0.0-7.0); Hematocrit 37.1 % (37.0-53.0); Hemoglobin* 13.4 gm/dL (13.5-17.5); Immature Granulocytes Abs Auto 0.03 K/uL (0.00-0.30); Immature Granulocytes Pct Auto 0.7 %; Lymphocytes Absolute Auto 1.59 K/uL (0.90-2.90); Lymphocytes Percent Auto 34.9 % (20-44); Mean Corpuscular HGB Conc 36 gm/dL (32-36); Mean Corpuscular Hemoglobin 30 pg (26-34); Mean Corpuscular Volume 83 fL (80-100); Monocytes Percent Auto 8.8 % (0.0-11.0); Neutrophils Absolute Auto 2.48 K/uL (1.7-7.0); Neutrophils Percent Auto 54.5 % (42.0-72.0); Platelet Count* 130 K/uL (140-440); RDW Coefficient of Variation % 13.8 % (11.5-15.5); Red Blood Count 4.49 m/uL (4.30-5.90); White Blood Count* 4.55 K/uL (4.50-11.00)
[2024-02-08 07:53] LABS: Slide Review Reflex No
[2024-02-08 08:00] LABS: Chloride* 111 mmol/L (96-114); Sodium* 138 mmol/L (135-149)
[2024-02-08 08:03] LABS: Anion Gap 10 mEq/L (7-15); Blood Urea Nitrogen* 5 mg/dL (5-24); Carbon Dioxide* 17 mmol/L (20-32); Creatinine* 0.3 mg/dL (0.5-1.5); Estimated Glomerular Filt Rate 170 ml/min; Glucose* 100 mg/dL (60-115)
[2024-02-08 08:04] LABS: Calcium* 9.1 mg/dL (8.4-10.6); Magnesium* 2.1 mg/dL (1.5-2.6)
[2024-02-08 08:36] LABS: Potassium* 2.7 mmol/L (3.6-5.1)
[2024-02-08] MEDS: SODIUM CHLORIDE 0.9 % (FLUSH) 10 ML SYRINGE 5 ML IVF ×2 (09:50→22:12)
[2024-02-08] MEDS: INSULIN GLARGINE,HUM.REC.ANLOG 100 UNIT/ML INSULN.PEN 50 UNIT SUBCUT (09:50)
[2024-02-08] MEDS: SERTRALINE 50 MG TABLET PO (09:50)
[2024-02-08] MEDS: POTASSIUM BICARB 25 MEQ EFFERVESCENT TAB PO ×4 (10:09→17:34)
[2024-02-08] MEDS: INSULIN ASPART 100 UNIT/ML SUBCUT ×3 (11:14→22:13)
[2024-02-08] MEDS: INSULIN ASPART 100 UNIT/ML 20 UNIT SUBCUT ×2 (12:02→17:23)
--- NOTE | 2024-02-08 14:02 | PM.IMPN1 ---
Progress Note: A&P Assessment and plan (1) DKA (diabetic ketoacidosis): Problem details: Given his obesity and strong family history of diabetes mellitus type 2 and his quite high insulin requirements I suspect he might have type 2 diabetes with DKA as the presenting illness rather than type 1 diabetes. Because of the uncertainty I will treat him with insulin pending outpatient followup. Status: Acute (2) Depression: Problem details: I am concerned that depression is affecting his ability to actively engaged in learning about diabetes and management of diabetes Status: Acute (3) Disorders of fluid, electrolyte, and acid-base balance: Problem details: Multiple abnormalities of fluid and electrolyte balance noted above. These are correcting with IV and oral therapies. Status: Acute Plan Continue in hospital for transition to subcutaneous insulin therapy and oral food and fluid. Nursing will do teaching about diet, a glucose monitoring and insulin injections. Plan of care discussed the patient he is in agreement with this Time Spent With Patient Total time spent: Total time spent today is 55 minutes in coordination of care discussing with patient other providers ongoing evaluation management diabetes mellitus Subjective Date Seen: 02/08/24 Interval history: Vishnu Jesus is a 23-year-old male with a past medical history significant for obesity, anxiety depression who presented to hospital with complaints of weakness. Approximately 2 to 3 weeks ago he was noticing that he was having increasing thirst. He is getting up multiple times in the night to go to the bathroom. He was noticing that he was drinking excessive amounts of water. Over the past 2 to 3 days he has noted that his urination has decreased despite being thirsty. He has noted increasing weakness and fatigue. He had nausea and vomiting and unable to keep down food and fluid. On admission he was diagnosed with diabetes mellitus and DKA. He had CO2 of 6 and a glucose of 361 and a hemoglobin A1c of 12.5. Treatment for this included vigorous resuscitation with IV fluids, potassium replacement, insulin drip. With this he felt much better. He is feeling much stronger. He has begun to eat without nausea and vomiting. 02/08/2024: This morning he was taken off insulin drip. The time it was discontinued he was getting around 10 units an hour. He is transition to basal bolus insulin with Lantus and NovoLog. He has not eaten this much this morning. He does acknowledge that he stays up very late and will eat late at night and then sleep late in the morning. Exam Narrative: Exam Narrative: He is tired appearing and awaken from sleep around 11:00 a.m. today. He appears to have depressed mood and affect which are congruent. He is pleasant and cooperative but gives minimal responses and engages minimally in conversation about his condition and treatment plan. Respirations are clear to auscultation. Cardiovascular: S1, S2, regular rate and rhythm. Abdomen: Bowel sounds active. Abdomen is soft with no tenderness or mass. Extremities without edema. Const: Vital Signs, click to edit/add: Vital Signs - 24 hr 02/07/24 14:53 02/07/24 15:00 02/07/24 15:00 Temperature 98.7 F Pulse Rate 87 Pulse Rate [Pulse Oximeter] 89 89 Respiratory Rate 24 24 Blood Pressure [Le ft Arm] 144/93 H Pulse Oximetry 99 Oxygen Delivery Me thod Room Air 02/07/24 16:35 02/07/24 18:30 02/07/24 19:00 Temperature 97.9 F 98 F Pulse Rate 91 Pulse Rate [Pulse Oximeter] 90 92 Respiratory Rate 24 24 Blood Pressure [Le ft Arm] 147/94 H 157/92 H Pulse Oximetry 99 100 Oxygen Delivery Me thod Room Air Room Air 02/07/24 19:00 02/07/24 20:00 02/07/24 22:00 Temperature 97.9 F 98.2 F Pulse Rate Pulse Rate [Pulse Oximeter] 91 91 102 H Respiratory Rate 20 20 18 Blood Pressure [Le ft Arm] 143/95 H 138/90 H Pulse Oximetry 100 99 Oxygen Delivery Me thod Room Air Room Air 02/07/24 22:56 02/07/24 22:56 02/08/24 00:00 Temperature 98.3 F Pulse Rate 99 Pulse Rate [Pulse Oximeter] 99 89 Respiratory Rate 18 18 Blood Pressure [Le ft Arm] 137/84 Pulse Oximetry 100 Oxygen Delivery Me thod Room Air 02/08/24 02:00 02/08/24 03:00 02/08/24 03:00 Temperature 98.5 F Pulse Rate 88 Pulse Rate [Pulse Oximeter] 92 88 Respiratory Rate 20 20 Blood Pressure [Le ft Arm] 144/84 H Pulse Oximetry 99 Oxygen Delivery Me thod Room Air 02/08/24 04:00 02/08/24 06:00 02/08/24 07:00 Temperature 97.7 F 97.3 F L Pulse Rate 74 Pulse Rate [Pulse Oximeter] 87 85 Respiratory Rate 22 20 Blood Pressure [Le ft Arm] 131/79 143/95 H Pulse Oximetry 99 100 Oxygen Delivery Me thod Room Air Room Air 02/08/24 07:00 02/08/24 07:45 02/08/24 11:00 Temperature 98.6 F 98.4 F Pulse Rate Pulse Rate [Pulse Oximeter] 88 88 92 Respiratory Rate 20 20 20 Blood Pressure [Le ft Arm] 147/87 H 133/103 H Pulse Oximetry 98 98 Oxygen Delivery Me thod Room Air Room Air Documenting provider has reviewed patient's vital signs: yes Labs Labs: Laboratory Results - last 24 hr 02/07/24 02/07/24 02/07/24 00:30 14:04 14:41 WBC RBC Hgb Hct MCV MCH MCHC RDW Coeff of Syd Plt Count Neut % (Auto) Lymph % (Auto) [place] % (Auto) Eos % (Auto) Baso % (Auto) Neut # (Auto) Lymph # (Auto) [place] # (Auto) Eos # (Auto) Baso # (Auto) Abs Immat Gran (auto) Imm/Tot Granulo (auto) VBG pH 7.281 L VBG pCO2 21 L VBG pO2 110.0 H VBG HCO3 10 L Sodium 135 Potassium 3.1 L Chloride 112 Carbon Dioxide 8 L* Anion Gap 15 BUN 4 L Creatinine 0.4 L Estimated Creat Clear 303.29 Estimated GFR 156 Glucose 191 H Hemoglobin A1c 12.5 H Calcium 9.2 Magnesium 1.9 Lab Acknowledgement Test Added 02/07/24 02/07/24 02/07/24 15:04 18:10 23:15 WBC RBC Hgb Hct MCV MCH MCHC RDW Coeff of Syd Plt Count Neut % (Auto) Lymph % (Auto) [place] % (Auto) Eos % (Auto) Baso % (Auto) Neut # (Auto) Lymph # (Auto) [place] # (Auto) Eos # (Auto) Baso # (Auto) Abs Immat Gran (auto) Imm/Tot Granulo (auto) VBG pH 7.249 L* 7.302 L VBG pCO2 34 L 30 L VBG pO2 < 30.1 38.3 VBG HCO3 15 L 15 L Sodium 134 L 136 Potassium 3.4 L 3.2 L Chloride 108 112 Carbon Dioxide 13 L 13 L Anion Gap 13 11 BUN 4 L 3 L Creatinine 0.4 L 0.3 L Estimated Creat Clear 303.29 404.39 Estimated GFR 156 170 Glucose 224 H 110 Hemoglobin A1c Calcium 8.8 9.2 Magnesium 1.8 Lab Acknowledgement Test Added 02/08/24 07:00 WBC 4.55 RBC 4.49 Hgb 13.4 L Hct 37.1 MCV 83 MCH 30 MCHC 36 RDW Coeff of Syd 13.8 Plt Count 130 L Neut % (Auto) 54.5 Lymph % (Auto) 34.9 [place] % (Auto) 8.8 Eos % (Auto) 0.9 Baso % (Auto) 0.2 Neut # (Auto) 2.48 Lymph # (Auto) 1.59 [place] # (Auto) 0.40 Eos # (Auto) 0.04 Baso # (Auto) 0.01 Abs Immat Gran (auto) 0.03 Imm/Tot Granulo (auto) 0.7 VBG pH 7.357 VBG pCO2 33 L VBG pO2 78.2 H VBG HCO3 18 L Sodium 138 Potassium 2.7 L* Chloride 111 Carbon Dioxide 17 L Anion Gap 10 BUN 5 Creatinine 0.3 L Estimated Creat Clear 404.39 Estimated GFR 170 Glucose 100 Hemoglobin A1c Calcium 9.1 Magnesium 2.1 Lab Acknowledgement
[2024-02-08 16:24] LABS: Chloride* 103 mmol/L (96-114)
[2024-02-08 16:25] LABS: Potassium* 3.7 mmol/L (3.6-5.1); Sodium* 133 mmol/L (135-149)
[2024-02-08 16:27] LABS: Creatinine* 0.4 mg/dL (0.5-1.5); Est. Creatinine Clearance* 303.29; Estimated Glomerular Filt Rate 156 ml/min
[2024-02-08 16:28] LABS: Anion Gap 14 mEq/L (7-15); Blood Urea Nitrogen* 4 mg/dL (5-24); Calcium* 9.2 mg/dL (8.4-10.6); Carbon Dioxide* 16 mmol/L (20-32); Glucose* 251 mg/dL (60-115)
--- NOTE | 2024-02-08 18:35 | PC.NURSE ---
PATIENT AFEBRILE. DENIED N/V AND TOLERATING REGULAR DIET. GAVE DIABETIC EDUCATION TO PATIENT TO BEGIN REVIEWING AND STARTED DISCUSSING DIABETIC DIET INFORMATION THAT WAS LEFT BY THE ELECTROMECHANICAL TECHNICIAN ON SATURDAY. REVIEWED INSULIN ADMINISTRATION AND PATIENT WAS ABLE TO ADMINISTER HIS SUPPER DOSE OF INSULIN TO HIMSELF. PATIENT ENCOURAGED TO ASK ANY QUESTIONS REGARDING THE PROVIDED EDUCATION AND WILL CONTINUE TO REVIEW DIABETIC INFORMATION. PATIENT WAS ABLE TO SHOWER AND ENCOURAGED TO AMBULATE IN HALLWAY AND BE UP IN THE ROOM MORE FREQUENTLY.
[2024-02-08] MEDS: ENOXAPARIN 40 MG/0.4 ML INJ SUBCUT (22:11)
[2024-02-09] VITALS (7 sets, daily range): BP systolic 140–163; BP diastolic 92–107; PULSE 87–94; RESP 16–20; TEMP 36.4–36.9; O2SAT 96–99
[2024-02-09] MEDS: PANTOPRAZOLE SODIUM 40 MG INJ IVP (02:12)
[2024-02-09] MEDS: INSULIN ASPART 100 UNIT/ML SUBCUT ×4 (02:12→22:24)
--- NOTE | 2024-02-09 06:24 | PC.NURSE ---
End of shift report [id number]: Pleasant and cooperative with cares. Denies any pain or shortness of breath this shift. Denies any nausea or vomiting, taking food and fluids with encouragement. Patient non receptive and not active in insulin administration. Flat affect and answers questions with few words or just yes/no. Independent with ambulation.
[2024-02-09 06:55] LABS: Basophils Percent Auto 0.8 % (0.0-3.0); Eosinophils Percent Auto 0.5 % (0.0-7.0); Hematocrit 37.5 % (37.0-53.0); Hemoglobin* 13.5 gm/dL (13.5-17.5); Immature Granulocytes Pct Auto 0.8 %; Lymphocytes Percent Auto 38.3 % (20-44); Mean Corpuscular HGB Conc 36 gm/dL (32-36); Mean Corpuscular Hemoglobin 30 pg (26-34); Mean Corpuscular Volume 83 fL (80-100); Monocytes Percent Auto 7.6 % (0.0-11.0); Platelet Count* 133 K/uL (140-440); RDW Coefficient of Variation % 13.6 % (11.5-15.5); Red Blood Count 4.54 m/uL (4.30-5.90); White Blood Count* 3.68 K/uL (4.50-11.00)
[2024-02-09 07:01] LABS: Slide Review Reflex No
[2024-02-09 07:19] LABS: Chloride* 102 mmol/L (96-114); Sodium* 138 mmol/L (135-149)
[2024-02-09 07:22] LABS: Anion Gap 13 mEq/L (7-15); Blood Urea Nitrogen* 4 mg/dL (5-24); Carbon Dioxide* 23 mmol/L (20-32); Creatinine* 0.4 mg/dL (0.5-1.5); Est. Creatinine Clearance* 303.29; Estimated Glomerular Filt Rate 156 ml/min; Glucose* 207 mg/dL (60-115)
[2024-02-09 07:23] LABS: Calcium* 8.9 mg/dL (8.4-10.6)
[2024-02-09 07:29] LABS: Potassium* 2.6 mmol/L (3.6-5.1)
[2024-02-09] MEDS: POTASSIUM BICARB 25 MEQ EFFERVESCENT TAB 50 MEQ PO ×3 (08:43→12:35)
[2024-02-09] MEDS: INSULIN GLARGINE,HUM.REC.ANLOG 100 UNIT/ML INSULN.PEN 50 UNIT SUBCUT (08:43)
[2024-02-09] MEDS: SODIUM CHLORIDE 0.9 % (FLUSH) 10 ML SYRINGE 5 ML IVF ×2 (10:33→22:24)
[2024-02-09] MEDS: INSULIN ASPART 100 UNIT/ML 20 UNIT SUBCUT ×2 (10:34→15:22)
--- NOTE | 2024-02-09 14:40 | P.IMPN_ITS ---
Progress Note: A&P Assessment and plan (1) DKA (diabetic ketoacidosis): Problem details: Given his obesity and strong family history of diabetes mellitus type 2 and his quite high insulin requirements I suspect he might have type 2 diabetes with DKA as the presenting illness rather than type 1 diabetes. Because of the uncertainty I will treat him with insulin pending outpatient followup. Status: Acute (2) Depression: Problem details: I am concerned that depression is affecting his ability to actively engaged in learning about diabetes and management of diabetes. Continue to assess and supp ort his engagement in self-care. Outpatient follow-up at [facility]. Status: Acute (3) Disorders of fluid, electrolyte, and acid-base balance: Problem details: Multiple abnormalities of fluid and electrolyte balance noted above. These are correcting with IV and oral therapies. Status: Acute Plan Continue in-hospital for addressing fluid and electrolyte issues, a diabetes management, engagement in self-care. Plan was discussed with the patient and other staff. Time Spent With Patient Total time spent: Total time spent today is 40 minutes in coordination of care and discussing with patient and other staff management of diabetes Subjective Date Seen: 02/09/24 Interval history: Vishnu Jesus is a 23-year-old male with a past medical history significant for obesity, anxiety depression who presented to hospital with complaints of wea kness. Approximately 2 to 3 weeks ago he was noticing that he was having increasing thirst. He is getting up multiple times in the night to go to the bathroom. He was noticing that he was drinking excessive amounts of water. Over the past 2 to 3 days he has noted that his urination has decreased despite being thirsty. He has noted increasing weakness and fatigue. He had nausea and vomiting and unable to keep down food and fluid. On admission he was diagnosed with diabetes mellitus and DKA. He had CO2 of 6 and a glucose of 361 and a hemoglobin A1c of 12.5. Treatment for this included vigorous resuscitation with IV fluids, potassium replacement, insulin drip. With this he felt much better. He is feeling much stronger. He has begun to eat without nausea and vomiting. 02/08/2024: This morning he was taken off insulin drip. The time it was discontinued he was getting around 10 units an hour. He is transition to basal bolus insulin with Lantus and NovoLog. He has not eaten this much this morning. He does acknowledge that he stays up very late and will eat late at night and then sleep late in the morning. 02/09/2024: Patient reports feeling well today. He has been eating. He has been performing self injections of insulin. Still staying up late and getting up late in the morning. No other health concerns. Exam Narrative: Exam Narrative: He is alert and appears in no distress. Mood and affect are brighter today. He is more cooperative. Breathing is unlabored. Const: Vital Signs, click to edit/add: Vital Signs - 24 hr 02/08/24 15:00 02/08/24 15:00 02/08/24 15:00 Temperature 98.0 F Pulse Rate 103 H Pulse Rate [Pulse Oximeter] 97 97 Respiratory Rate 20 20 Blood Pressure [Le ft Arm] 146/99 H Pulse Oximetry 98 Oxygen Delivery Me thod Room Air 02/08/24 20:22 02/08/24 23:00 02/08/24 23:00 Temperature 97.8 F Pulse Rate 88 Pulse Rate [Pulse Oximeter] 94 92 Respiratory Rate 20 18 Blood Pressure [Le ft Arm] 142/93 H Pulse Oximetry 98 Oxygen Delivery Me thod Room Air 02/09/24 00:00 02/09/24 03:00 02/09/24 08:30 Temperature 98.2 F 98.1 F Pulse Rate Pulse Rate [Pulse Oximeter] 92 92 89 Respiratory Rate 18 20 20 Blood Pressure [Le ft Arm] 146/97 H 151/103 H Pulse Oximetry 96 98 Oxygen Delivery Ia thod Room Air Room Air 02/09/24 08:30 02/09/24 12:44 Temperature 98.4 F 98 F Pulse Rate Pulse Rate [Pulse Oximeter] 90 94 Respiratory Rate 20 20 Blood Pressure [Le ft Arm] 155/98 H 148/98 H Pulse Oximetry 97 98 Oxygen Delivery Me thod Room Air Room Air Documenting provider has reviewed patient's vital signs: yes Labs Labs: Laboratory Results - last 24 hr 02/08/24 02/09/24 16:06 06:24 WBC 3.68 L RBC 4.54 Hgb 13.5 Hct 37.5 MCV 83 MCH 30 MCHC 36 RDW Coeff of Syd 13.6 Plt Count 133 L Neut % (Auto) 52.0 Lymph % (Auto) 38.3 [place] % (Auto) 7.6 Eos % (Auto) 0.5 Baso % (Auto) 0.8 Neut # (Auto) 1.90 Lymph # (Auto) 1.40 [place] # (Auto) 0.30 Eos # (Auto) 0.00 Baso # (Auto) 0.00 Abs Immat Gran (auto) 0.00 Imm/Tot Granulo (auto) 0.8 Sodium 133 L 138 Potassium 3.7 2.6 L* Chloride 103 102 Carbon Dioxide 16 L 23 Anion Gap 14 13 BUN 4 L 4 L Creatinine 0.4 L 0.4 L Estimated Creat Clear 303.29 303.29 Estimated GFR 156 156 Glucose 251 H 207 H Calcium 9.2 8.9 Magnesium 2.0
[2024-02-09 15:36] LABS: Potassium* 3.7 mmol/L (3.6-5.1)
[2024-02-09 16:19] LABS: Beta-Hydroxybutyric Acid 77.7 mg/dL (0.0-3.0)
--- NOTE | 2024-02-09 18:52 | PC.NURSE ---
End of shift [id number]: Pt has been A&O, afebrile and VSS with exception to ongoing HTN. He is up ad ann independently in his room. Pt has been compliant with education on pricking his own finger for blood sugar checks and self administering insulin. Pt had lunch around 1530 and at this time received his scheduled & SS Novolog; see eMAR for adjustment of admin times since the schedule is off. K+ recheck at 1400 was 3.7 after receiving x3 PO doses of potass bicarb. PIV is SL and C/D/I. Pt reports having a normal BM this shift. Continues to deny pain, nausea or dizziness. ?
[2024-02-09] MEDS: ENOXAPARIN 40 MG/0.4 ML INJ SUBCUT (22:23)
[2024-02-10] MEDS: PANTOPRAZOLE SODIUM 40 MG INJ IVP (02:14)
[2024-02-10] MEDS: INSULIN ASPART 100 UNIT/ML SUBCUT ×2 (02:14→10:37)
[2024-02-10 02:28] VITALS: BP 150/107; PULSE 104; RESP 20; TEMP 36.7; O2SAT 99
--- NOTE | 2024-02-10 05:14 | PC.NURSE ---
End of shift report [id number]: Alert and oriented x 4. Patient able to demonstrate proper insulin pen prep, dosing and administration. Continues to be disengaged with education, will verbalize how to complete steps but is indifferent when discussing diabetic management. Declined dinner this evening, scheduled dinner insulin non-administered. Denies any nausea or vomiting, denies pain or SOB. Independent with ambulation.
[2024-02-10 06:26] LABS: Basophils Percent Auto 0.6 % (0.0-3.0); Eosinophils Percent Auto 1.1 % (0.0-7.0); Hematocrit 36.5 % (37.0-53.0); Immature Granulocytes Pct Auto 0.3 %; Lymphocytes Percent Auto 39.6 % (20-44); Mean Corpuscular HGB Conc 36 gm/dL (32-36); Mean Corpuscular Hemoglobin 30 pg (26-34); Mean Corpuscular Volume 84 fL (80-100); Monocytes Percent Auto 8.1 % (0.0-11.0); Neutrophils Percent Auto 50.3 % (42.0-72.0); Platelet Count* 115 K/uL (140-440); RDW Coefficient of Variation % 13.3 % (11.5-15.5); Red Blood Count 4.35 m/uL (4.30-5.90); White Blood Count* 3.59 K/uL (4.50-11.00)
[2024-02-10 06:27] LABS: Slide Review Reflex No
[2024-02-10 06:40] LABS: Chloride* 99 mmol/L (96-114); Sodium* 138 mmol/L (135-149)
[2024-02-10 06:43] LABS: Anion Gap 9 mEq/L (7-15); Blood Urea Nitrogen* 4 mg/dL (5-24); Calcium* 9.2 mg/dL (8.4-10.6); Carbon Dioxide* 30 mmol/L (20-32); Creatinine* 0.4 mg/dL (0.5-1.5); Est. Creatinine Clearance* 303.29; Estimated Glomerular Filt Rate 156 ml/min; Glucose* 195 mg/dL (60-115)
[2024-02-10 06:44] LABS: Magnesium* 1.8 mg/dL (1.5-2.6)
[2024-02-10 06:57] LABS: Potassium* 2.9 mmol/L (3.6-5.1)
[2024-02-10 09:22] VITALS: BP 211/140; PULSE 96; RESP 20; TEMP 36.7; O2SAT 100
[2024-02-10] MEDS: POTASSIUM BICARB 25 MEQ EFFERVESCENT TAB 50 MEQ PO ×3 (09:29→12:20)
[2024-02-10] MEDS: INSULIN GLARGINE,HUM.REC.ANLOG 100 UNIT/ML INSULN.PEN 50 UNIT SUBCUT (09:29)
[2024-02-10 09:49] VITALS: BP 180/112
[2024-02-10] MEDS: INSULIN ASPART 100 UNIT/ML 20 UNIT SUBCUT (10:36)
[2024-02-10] MEDS: lisinopriL 10 MG TABLET PO (10:37)
[2024-02-10] MEDS: SERTRALINE 50 MG TABLET PO (10:37)
[2024-02-10 10:53] LABS: Potassium Urine Random* 7.3; Sodium Urine Random* 109
[2024-02-10 11:01] VITALS: BMI 34.4
[2024-02-10 11:23] LABS: Creatinine Urine Random 494 mg/dL
--- NOTE | 2024-02-10 12:14 | P.IMPN_ITS ---
Progress Note: A&P Assessment and plan (1) DKA (diabetic ketoacidosis): Problem details: - h/o BMI 34, high insulin requirements, + strong family history of DM2 - his DKA may be an atypical presentation of DM2; for now, treat with insulin as monotherapy until PCP/Endocrine followup Status: Acute (2) Depression: Problem details: - flat affect, denies acute concerns - continue Zoloft, close outpatient f/u Status: Acute (3) Disorders of fluid, electrolyte, and acid-base balance: Problem details: - continue to follow and replace K Status: Acute (4) Essential hypertension: Problem details: - starting Lisinopril 02/09 Status: Acute Plan - likely home with close f/u tomorrow Subjective Date Seen: 02/10/24 Interval history: Vishnu was admitted to the hospital on 02/07/24 with DKA, new DM diagnosis; he presented with nausea/vomiting, weakness, polydipsia, polyruia. A1C >12. He was treated with an insulin gtt for 24 hours, then transitioned to insulin (Lantus + Novolog) as he began to tolerate po intake. Insulin needs remain high: 50U of Lantus at HS + 20U Novolog TID (occasionally refusing when not taking po), + SSI (approximately 24 U sliding scale daily). Today he's meeting with our Dietitian and Social Work teams, has been able to self-administer insulin without difficulty. He would like to go home today, but potassium remains difficult to manage (K of 2.9 this morning). BP has been elevated; amenable to starting Lisinopril. Affect flat, h/o depression and anxiety. Has restarted previous dose of Zoloft. No other concerns for hospitalist team this morning. Exam Narrative: Exam Narrative: GEN: Alert and oriented, nontoxic HEENT: EOMIs bilaterally, no scleral icterus CV: RRR, No concerning murmurs R: LCTA bilaterally without concerning wheezing, breathing comfortably Ext: wwp, no concerning edema Skin: No concerning skin lesions or rashes on exposed skin Neuro: Nonfocal Psych: Flat affect, denies acute psych concerns Const: Vital Signs, click to edit/add: Vital Signs - 24 hr 02/09/24 12:44 02/09/24 15:00 02/09/24 15:00 Temperature 98 F 97.6 F Pulse Rate [Pulse Oximeter] 94 87 87 Respiratory Rate 20 16 16 Blood Pressure [Le ft Arm] 148/98 H 156/101 H Pulse Oximetry 98 99 Oxygen Delivery Me thod Room Air Room Air 02/09/24 19:00 02/09/24 23:00 02/09/24 23:00 Temperature 97.6 F 97.5 F L Pulse Rate [Pulse Oximeter] 91 91 92 Respiratory Rate 18 18 18 Blood Pressure [Le ft Arm] 140/92 H 163/107 H Pulse Oximetry 99 97 Oxygen Delivery Me thod Room Air Room Air 02/10/24 02:28 02/10/24 09:22 02/10/24 09:49 Temperature 98.1 F 98.0 F Pulse Rate [Pulse Oximeter] 104 H 96 Respiratory Rate 20 20 Blood Pressure [Le ft Arm] 150/107 H 211/140 H 180/112 H Pulse Oximetry 99 100 Oxygen Delivery Me thod Room Air Room Air Labs Labs: Laboratory Results - last 24 hr 02/07/24 02/09/24 02/10/24 06:43 15:17 06:14 WBC 3.59 L RBC 4.35 Hgb 13.0 L Hct 36.5 L MCV 84 MCH 30 MCHC 36 RDW Coeff of Syd 13.3 Plt Count 115 L Neut % (Auto) 50.3 Lymph % (Auto) 39.6 [place] % (Auto) 8.1 Eos % (Auto) 1.1 Baso % (Auto) 0.6 Neut # (Auto) 1.80 Lymph # (Auto) 1.40 [place] # (Auto) 0.30 Eos # (Auto) 0.00 Baso # (Auto) 0.00 Abs Immat Gran (auto) 0.00 Imm/Tot Granulo (auto) 0.3 Sodium 138 Potassium 3.7 2.9 L* Chloride 99 Carbon Dioxide 30 Anion Gap 9 BUN 4 L Creatinine 0.4 L Estimated Creat Clear 303.29 Estimated GFR 156 Glucose 195 H Calcium 9.2 Magnesium 1.8 Beta-Hydroxybutyric Acd 77.7 H Ur Random Creatinine Ur Random Sodium Ur Random Potassium 02/10/24 10:27 WBC RBC Hgb Hct MCV MCH MCHC RDW Coeff of Sdy Plt Count Neut % (Auto) Lymph % (Auto) [place] % (Auto) Eos % (Auto) Baso % (Auto) Neut # (Auto) Lymph # (Auto) [place] # (Auto) Eos # (Auto) Baso # (Auto) Abs Immat Gran (auto) Imm/Tot Granulo (auto) Sodium Potassium Chloride Carbon Dioxide Anion Gap BUN Creatinine Estimated Creat Clear Estimated GFR Glucose Calcium Magnesium Beta-Hydroxybutyric Acd Ur Random Creatinine 494 Ur Random Sodium 109 Ur Random Potassium 7.3
[2024-02-10 12:21] VITALS: BP 148/106; PULSE 92; RESP 18; TEMP 36.4; O2SAT 98
--- NOTE | 2024-02-10 13:26 | PC.SOCIAL ---
Discharge planning: Met with pt regarding resources for insurance and mental health support. Pt states he is without insurance and will be applying for Medical Assistance. Explained the option of connecting with [employer] or the [facility] to work with a [employer] Navigator on the application. Provided pt with written information on [employer] for free medical and mental health care. Also provided pt with information on free mental health hotline information. Pt is aware of how to contact hospital social services director if additional resources are needed.
[2024-02-10 14:28] LABS: Potassium* 4.4 mmol/L (3.6-5.1)
--- NOTE | 2024-02-10 17:49 | PC.NURSE ---
Addendum entered by Ailyn Adkins RN 02/10/24 17:58: I personally showed the patient where to go tomorrow to get his labs drawn in the AM. Original Note: Upon afternoon assessment the patient expressed his want to leave and asked if he had the right to leave. I let him know the process of AMA discharge.... all meds were sent to [facility] and he received a paper order for glucometer and supplies. I also gave him a paper order for his labs to be drawn tomorrow AM. Educated extensively on his new medications and the differences between his insulin. I also educated about signs of hypo/hyperglycemia as well as diet and activity importance. Appointment with new PCP is scheduled for later this week, the patient is aware of this. The patient seemed receptive to most of my education. All belongings were sent home with him and he ambulated off the unit. Ailyn GRANT BSN
--- NOTE | 2024-02-10 22:14 | PM.EN ---
Chart Event Note Time Seen by Provider: 15:30 Date Seen: 02/10/24 Chart Event Note: Vishnu desired to leave AMA. I went to see him and asked him why he wanted to leave today. He said he just didn't want to be here any longer and didn't want to be in this room any more. I reviewed with him that we were monitoring his blood sugars, potassium, and blood cells and I was concerned that if he left AMA and his potassium was either to lower to high, he could experience in arrhythmia or even if fatal arrhythmia. He demonstrated understanding and stated that this information did not change his mind. He said he heard that some of the medications had already been sent over to [place] and he he wanted to go get them and not have to come back. I reviewed his insulin regimen that he has been getting here and I asked the nurses to do some more teaching with him before he left. I also asked him to come back tomorrow morning for labs and gave him a script for that. I sent scripts to [facility] for insulin and his other medications. I gave him a paper script for other diabetic supplies. I asked him to return for any dizziness or constitutional symptoms, palpitations, chest discomfort, significant hypoglycemia or hyperglycemia.
--- NOTE | 2024-02-11 08:57 | PM.DS1 ---
DS: Providers Provider Date Seen: 02/10/24 Date of admission: 02/07/24 02:25 Primary care physician: Not a Local Provider Admitting Clinician: Rob Molina MD Consults: 02/10/24 09:27 Consult to [facility] [CONS] Routine Comment: Reason for Consult:: Social Service Consult Attending Physician on discharge: Sara Norwood MD Date of Discharge: 02/10/24 DS: Diagnosis Discharge Diagnosis (1) Essential hypertension: Status: Acute Problem details: - started Lisinopril 02/09 (2) Disorders of fluid, electrolyte, and acid-base balance: Status: Acute Problem details: - continue to follow and replace K (3) Depression: Status: Acute Problem details: - flat affect, denies acute concerns - continue Zoloft, close outpatient f/u (4) DKA (diabetic ketoacidosis): Status: Acute Problem details: - new diagnosis on presentation 02/06/24 - acidotic with pH 6.92, bicarb <5, AG 25 - initially treated with insulin gtt, D5NS +KCl, bicarbonate - h/o BMI 34, high insulin requirements, + strong family history of DM2 - his DKA may have been an atypical presentation of DM2; for now, treat with insulin as monotherapy until PCP/Endocrine followup DS: Summary Hospital Course Hospital Course: Vishnu was admitted to the hospital on 02/07/24 with DKA, new DM diagnosis; he presented with nausea/vomiting, weakness, polydipsia, polyruia. A1C >12. He was treated with an insulin gtt for 24 hours, then transitioned to insulin (Lantus + Novolog) as he began to tolerate po intake. Insulin needs remain high: 50U of Lantus at HS + 20U Novolog TID (occasionally refusing when not taking po), + SSI (approximately 24 U sliding scale daily). Hypokalemic during stay, requiring potassium supplementation and monitoring SBP 140-180s, Lisinopril initiated during stay. Affect flat, h/o depression and anxiety. Has restarted previous dose of Zoloft. Seen by Social Work team and dietitian during stay, has an PCP appointment set up at [facility] later this week and has been given resources for [employer] [facility] locally given current uninsured status. Patient was to remain in hospital until 02/10 given hypokalemia; and insulin titration; however, he was unwilling to do so in left in the afternoon on 02/09. I called his pharmacy on 02/10 ([facility]) and he was picking up his medications that morning (did not turkey picker upon discharge), and then I called patient. He stated he was feeling fine and would be coming in to the hospital for a recheck of his BMP in the morning. Results pending at this time. Status at Discharge Functional status at discharge: independent ambulation Overall status at discharge: patient is progressing back to baseline Time Spent with Patient Time attestation: Total time spent providing and/or coordinating discharge services: Time spent: Greater than 30 minutes Specific discharge activities: Medication reconciliation, patient education 02/09 Exam Narrative: Exam Narrative: GEN: Alert and oriented, nontoxic HEENT: EOMIs bilaterally, no scleral icterus CV: RRR, No concerning murmurs R: LCTA bilaterally without concerning wheezing, breathing comfortably Ext: wwp, no concerning edema Skin: No concerning skin lesions or rashes on exposed skin Neuro: Nonfocal Psych: Flat affect Const: Vital Signs, click to edit/add: Vital Signs - 24 hr 02/10/24 09:22 02/10/24 09:49 02/10/24 12:21 Temperature 98.0 F 97.6 F Pulse Rate [Pulse Oximeter] 96 92 Respiratory Rate 20 18 Blood Pressure [Le ft Arm] 211/140 H 180/112 H 148/106 H Pulse Oximetry 100 98 Oxygen Delivery Me thod Room Air Room Air DS: Data Data Completed and Pending Labs on day of discharge: Labs from last 24 hours 02/10/24 02/10/24 14:03 10:27 Potassium 4.4 Ur Random Creatinine 494 Ur Random Sodium 109 Ur Random Potassium 7.3 Discharge Plan Discharge Disposition: Left Against Medical Advice Date of Admission: 02/07/24 02:25 Attending Provider on Discharge: Tracie Farley Primary Care Provider: Provider,Not a Local Discharge Medications: New lisinopril 10 mg Tablet 10 mg PO DAILY Qty: 30 0RF sertraline 50 mg Tablet 50 mg PO DAILY Qty: 30 0RF insulin aspart U-100 100 unit/mL (3 mL) Insulin Pen 25 unit subcut TIDWM Qty: 15 0RF insulin glargine [Lantus Solostar U-100 Insulin] 100 unit/mL (3 mL) Insulin Pen 60 unit subcut DAILY Qty: 15 0RF potassium chloride 20 mEq tablet extended release 40 meq PO DAILY Qty: 60 0RF Discontinued sertraline 50 mg tablet 50 mg PO DAILY Discharge Orders: Discharge Order (Routine); Ordered 02/10/24 Ordered By: Tracie Farley AMA Form Signed: Yes
[2024-02-11 09:57] LABS: Chloride* 98 mmol/L (96-114); Potassium* 3.8 mmol/L (3.6-5.1); Sodium* 135 mmol/L (135-149)
[2024-02-11 10:00] LABS: Anion Gap 12 mEq/L (7-15); Blood Urea Nitrogen* 4 mg/dL (5-24); Carbon Dioxide* 25 mmol/L (20-32); Creatinine* 0.4 mg/dL (0.5-1.5); Est. Creatinine Clearance* 303.29; Estimated Glomerular Filt Rate 156 ml/min; Glucose* 309 mg/dL (60-115)
[2024-02-11 10:01] LABS: Calcium* 10.1 mg/dL (8.4-10.6)
== END 2024-02-10 17:30 | disposition left against medical advice (07) | DRG 420 ==
LOC: ED 02-07 01:19 → MEDSURG 02-07 01:51
PROVIDERS: Family Medicine; Admitting Provider Student in an Organized Health Care Education/Training Program; Emergency Provider Internal Medicine; Visit Provider Student in an Organized Health Care Education/Training Program
DX: E10.10 Type 1 diabetes mellitus with ketoacidosis without coma (principal); F32.A Depression, unspecified; E87.8 Other disorders of electrolyte and fluid balance, not elsewhere classified; Z83.3 Family history of diabetes mellitus; I10 Essential (primary) hypertension; Z53.29 Procedure and treatment not carried out because of patient's decision for other reasons
CPT/HCPCS: 36415; 80048; 80053; 81001; 81003; 82010; 82570; 82803; 82962; 83036; 83605; 83735; 84100; 84132; 84133; 84300; 84443; 85025; 86703; 87086; 93005; 99283; 99285; G0378; A9270; J1650; J1815; J2405; J2470; J3480; J3590; J7030; J7042